=== PATIENT | female | born 1980 | race Caucasian/White ===

== ENCOUNTER → 2016-11-08 | Outpatient (CLI) | payer BC ==
--- NOTE | 2016-11-08 09:44 | RAD ---
Renal ultrasound with deep Doppler, 11/08/2016: History: Hypertension The right kidney measures 10.5 cm in length while the left kidney measures 10.0 cm. There is no evidence of hydronephrosis or a renal mass. The renal parenchymal echogenicity is within normal limits. No abnormal perinephric process is seen. The partially filled urinary bladder is unremarkable. Doppler interrogation of the main renal arteries was then performed including grayscale, color-flow and spectral Doppler analysis. No significant elevated velocities are seen in either main renal artery to suggest significant renal artery stenosis. No parvus/tardus phenomena is evident. IMPRESSION: 1. No significant renal abnormality is detected. 2. No duplex evidence of significant renal artery stenosis.
== END | disposition home or self-care (01) ==
LOC: US 06:43
PROVIDERS: ATTEND Family Medicine
DX: I10 Essential (primary) hypertension (principal)
CPT/HCPCS: 76770; 93975

== ENCOUNTER → 2018-01-30 | Outpatient (CLI) | payer BC ==
--- NOTE | 2018-01-30 16:52 | CARD ---
MR#: [id number] Date of Study: 01/30/2018 Ordering Physician: CUBA RODRIGUEZ, Referring Physician: CUBA RODRIGUEZ, Tech: Jenifer Jimenez SHAI APPROVED REPORT EXAM: Two-dimensional and M-mode echocardiogram with Doppler and color Doppler. Other Information Quality : Good INDICATION Murmur 2D DIMENSIONS RVDd2.7 (2.9-3.5cm)Left Atrium(2D)3.3 (1.6-4.0cm) IVSd0.9 (0.7-1.1cm)Aortic Root(2D)2.2 (2.0-3.7cm) LVDd4.4 (3.9-5.9cm)LVOT Diameter1.8 (1.8-2.4cm) PWd0.9 (0.7-1.1cm)LVDs2.5 (2.5-4.0cm) FS (%) 30.0 %SV63.0 ml LVEF(%)60.0 (>50%) Aortic Valve AoV Peak Armand.162.8cm/sAoV VTI26.6cm AO Peak GR.10.6mmHgLVOT Peak Armand.135.8cm/s AO Mean GR.5mmHgAVA (VMAX)2.24cm2 FELIPE (VTI)2.70cm2 Mitral Valve MV E Toozydvc520.4cm/sMV DECEL LJTK023mc MV A Uscutsum69.3cm/sE/A Ratio1.3 Tricuspid Valve TR P. Zmwavvsr971ci/sRAP [id number] TR Peak Gr.26szCaEQYG53znQp Pulmonary Vein S1 Txjkoumw92.1cm/sD2 Omneswxa50.1cm/s LEFT VENTRICLE The left ventricle is normal size. There is normal left ventricular wall thickness. The left ventricu lar systolic function is normal. The Ejection Fraction is 55-60%. There is normal LV segmental wall m otion. The left ventricular diastolic function and filling is normal for age. RIGHT VENTRICLE The right ventricle is normal size. The right ventricular systolic function is normal. ATRIA The left atrium size is normal. The right atrium size is normal. The interatrial septum is intact wit h no evidence for an atrial septal defect or patent foramen ovale as noted on 2-D or Doppler imaging. AORTIC VALVE The aortic valve is normal in structure and function. Doppler and Color Flow revealed no significant aortic regurgitation. There is no significant aortic valvular stenosis. MITRAL VALVE The mitral valve is normal in structure and function. There is no evidence of mitral valve prolapse. There is no mitral valve stenosis. Doppler and Color-flow revealed trace mitral regurgitation. TRICUSPID VALVE The tricuspid valve is normal in structure and function. Doppler and Color Flow revealed trace tricus pid regurgitation. There is mild-moderate pulmonary hypertension. The PA pressure was estimated at 40 mmHg. There is no tricuspid valve stenosis. PULMONIC VALVE The pulmonic valve is not well visualized. Doppler and Color Flow revealed no pulmonic valvular regur gitation. There is no pulmonic valvular stenosis. GREAT VESSELS The aortic root is normal in size. The ascending aorta is normal in size. The IVC is normal in size a nd collapses >50% with inspiration. PERICARDIAL EFFUSION There is no evidence of significant pericardial effusion. Critical Notification Critical Value: No <Conclusion> The left ventricular systolic function is normal. The Ejection Fraction is 55-60%. There is normal LV segmental wall motion. Trace mitral regurgitation. Trace tricuspid regurgitation. The PA pressure was estimated at 40 mmHg. There is no evidence of significant pericardial effusion. Signed by : Abhilash Gaines, Electronically Approved : 01/30/2018 16:51:20
== END | disposition home or self-care (01) ==
LOC: ECHO 12:21
PROVIDERS: ATTEND Internal Medicine Cardiovascular Disease
DX: I27.20 Pulmonary hypertension, unspecified (principal); I10 Essential (primary) hypertension
CPT/HCPCS: 93306